=== PATIENT | female | born 1960 | race Caucasian/White ===

== ENCOUNTER 2017-03-20 07:19 | Day surgery (SDC) | payer BC ==
--- NOTE | 2017-03-19 10:43 | HISTORY AND PHYSICAL E ---
History and Physical NAME: LUIS BRAGG : 1960 AGE: 57Y ADMITTED: 03/20/2017 ROOM: CHIEF COMPLAINT: Change in bowel habits, constipation. PLAN: Colon screening. HISTORY: The patient is known to me. In 2008, I saw her. She does have abdominal pain and history of diverticulosis. She did have benign looking rectosigmoid polyps, external hemorrhoids. PAST SURGICAL HISTORY: Hysterectomy. MEDICATIONS: 1. Vitamins. 2. Aspirin. 3. Losartan. SOCIAL HISTORY: She does not smoke, does not drink. FAMILY HISTORY: Father has kidney disease. Mom's history is unremarkable. REVIEW OF SYSTEMS: GASTROINTESTINAL: Constipation, abdominal pain. PHYSICAL EXAMINATION: VITAL SIGNS: Blood pressure 130/80, pulse 80, respirations 20, temp is 98. HEAD, EYES, EARS, NOSE AND THROAT: Normal. ABDOMEN: Soft. NEUROLOGICAL: Exam negative. Colonoscopy 05/2008 shows as follows: Patient did have difficult intubation, rectosigmoid and descending colon adhesions. She did have difficult intubation. Rectosigmoid and descending colon adhesions. Rectal area showed external hemorrhoids, benign looking sigmoid polyps. Again, difficult intubation of the left sigmoid descending colon, otherwise the polyps benign hyperplastic polyps. The patient did have upper endoscopy in 2008 showing esophagitis, gastritis mild. The patient did have cholecystectomy. The patient presented at this time regarding abdominal pain. PLAN: Colon exam scheduled for 03/20/2017. DICTATING PHYSICIAN: ALVAREZ MCGRATH M.D. [id number] PHY#: [id number] ID: [id number] JOB#: [id number] ACCT: [id number] cc:ALVAREZ MCGRATH M.D. >
[2017-03-20] MEDS ORDERED: LIDOCAINE 2% JELLY 30 ML TUBE ONE (07:34)
[2017-03-20] MEDS ORDERED: ONDANSETRON HCL INJ/PF 4 MG/2 ML SDV ONE (07:35)
[2017-03-20] MEDS ORDERED: GLYCOPYRROLATE INJ 0.4 MG/2 ML VIAL ONE (07:35)
[2017-03-20] MEDS ORDERED: NALOXONE HCL INJ/PF 0.4 MG/1 ML SDV ONE (07:35)
[2017-03-20] MEDS ORDERED: EPINEPHRINE INJ 1 MG/10 ML DISP.SYRIN ONE (07:36)
[2017-03-20] MEDS ORDERED: FLUMAZENIL INJ 0.5 MG/5 ML VIAL IV ONE (07:36)
[2017-03-20] MEDS ORDERED: GLUCAGON,HUMAN RECOMB 1 MG INJ ONE (07:36)
[2017-03-20] MEDS ORDERED: FENTANYL CITRATE INJ/PF 100 MCG/2 ML AMPUL ONE (07:36)
[2017-03-20] MEDS: MIDAZOLAM 2 MG/2 ML INJ ONE ×3 (07:56→08:03)
[2017-03-20 09:23] VITALS: BP 105/70
[2017-03-20 09:56] LABS: ABSOLUTE EOSINOPHILS # (AUTO) 0.1 10^3/uL (0.0-0.6); ABSOLUTE LYMPHOCYTES (AUTO) 2.6 10^3/uL (0.5-4.7); ABSOLUTE MONOCYTES (AUTO) 0.5 10^3/uL (0.1-1.4); ABSOLUTE NEUT (AUTO) 5.4 10^3/uL (1.7-8.2); BASOPHILS % (AUTO) 0.5 % (0-2); EOSINOPHILS % (AUTO) 1.3 % (0-6); HEMOGLOBIN 13.6 g/dL (12.0-15.5); HGB HCT DIFFERENCE -0.2; LYMPHOCYTES % (AUTO) 29.9 % (13-45); MEAN CORPUSCULAR HEMOGLOBIN 30.8 pg (27.0-33.4); MEAN CORPUSCULAR HGB CONC 33.2 g/dL (32.0-36.0); MEAN CORPUSCULAR VOLUME 93 fl (80-97); MONOCYTES % (AUTO) 5.7 % (3-13); RED BLOOD COUNT 4.42 10^6/uL (3.72-5.28); RED CELL DISTRIBUTION WIDTH 13.6 % (11.5-14.0); SEGMENTED NEUTROPHILS % (AUTO) 62.6 % (42-78); WHITE BLOOD COUNT 8.6 10^3/uL (4.0-10.5)
--- NOTE | 2017-03-20 15:47 | OPERATIVE REPORT E ---
Operative Report NAME: LUIS BRAGG : 1960 AGE: 57Y DATE OF SURGERY: 03/20/2017 ROOM: PREOPERATIVE DIAGNOSES: 1. Colon screening. 2. Abdominal pain. 3. Diverticulosis. POSTOPERATIVE DIAGNOSES: A 3 mm polyp proximal transverse colon. PROCEDURE: Colonoscopy. SURGEON: ALVAREZ MCGRATH M.D. ANESTHESIA: Versed 5, fentanyl 100. TISSUE REMOVED OR ALTERED: Polyp removed bite biopsy, 3 mm, in the proximal transverse colon. DESCRIPTION: Rectal exam: Mild external hemorrhoids. Rectum normal. Sigmoid diverticulosis. Descending colon diverticulosis. Transverse colon shows 3 mm polyp proximal transverse colon, biopsy obtained. Ascending colon normal. Cecum normal. Scope withdrawn cecum, ascending, transverse, descending, sigmoid, all the way to the rectum. CONCLUSION: 1. Sigmoid descending colon diverticulosis. 2. Small 3 mm polyp proximal transverse colon. PLAN: 1. Awaiting biopsy results. 2. Consider followup colonoscopy after 3 years. Patient had difficult intubation, scars from previous surgery. She may need to be done in the OR with anesthesia standby. 3. Soft residue diet 3 days. 4. Hold aspirin and nonsteroidal 3 days. DICTATING PHYSICIAN: ALVAREZ MCGRATH M.D. [id number] PHY#: [id number] ID: [id number] JOB#: [id number] ACCT: [id number] cc:ALVAREZ MCGRATH M.D. >
--- NOTE | 2017-03-20 15:51 | DISCHARGE SUMMARY E ---
Discharge Summary NAME: LUIS BRAGG : 1960 AGE: 57Y ADMITTED: 03/20/2017 DISCHARGED: 03/20/2017 Patient is a 57-year-old female who underwent colon exam today for abdominal pain and colon screening. She did have a 3 mm polyp proximal transverse colon, biopsy obtained, severe diverticulosis sigmoid descending colon, and adhesions from previous abdominal surgery. DISCHARGE PLAN: 1. Soft low residue diet for 3 days. 2. Hold aspirin. 3. Awaiting biopsy results. 4. Consider followup colonoscopy in 3 years. DICTATING PHYSICIAN: ALVAREZ MCGRATH M.D. [id number] PHY#: [id number] ID: [id number] JOB#: [id number] ACCT: [id number] cc:ALVAREZ MCGRATH M.D. >
--- NOTE | 2017-03-20 21:18 | DISCHARGE SUMMARY E ---
Discharge Summary NAME: LUIS BRAGG : 1960 AGE: 57Y ADMITTED: 03/20/2017 DISCHARGED: 03/20/2017 The patient is a 57-year-old female, underwent colon exam today showing 3 mm polyp transverse colon, severe diverticulosis sigmoid descending colon. She is discharged on a soft, low-residue diet, hold aspirin. Awaiting biopsy results. Consideration colonoscopy 3 years. Please send copy of the op report and the discharge summary, the original, to Dr. Yared Donald. DICTATING PHYSICIAN: ALVAREZ MCGRATH M.D. [id number] PHY#: [id number] ID: [id number] JOB#: [id number] ACCT: [id number] cc:ALVAREZ MCGRATH M.D., TAJ >
== END 2017-03-20 09:40 | disposition home or self-care (01) ==
LOC: END 07:19
PROVIDERS: ATTEND Specialist
PROC: 0DBL8ZX Excision of Transverse Colon, Via Natural or Artificial Opening Endoscopic, Diagnostic (ICD-10-PCS; principal; 2017-03-20 08:00)
DX: Z12.11 Encounter for screening for malignant neoplasm of colon (principal); D12.3 Benign neoplasm of transverse colon; K57.30 Diverticulosis of large intestine without perforation or abscess without bleeding; K64.4 Residual hemorrhoidal skin tags; Z79.82 Long term (current) use of aspirin; Z79.899 Other long term (current) drug therapy; Z89.421 Acquired absence of other right toe(s)
CPT/HCPCS: 45380; 36415; 85025; 88305 ×2; J2250; J3010; J1610; J2405; J0171; J2310; J3490

== ENCOUNTER 2017-07-02 09:49 | Day surgery (SDC) | payer BC ==
[~2017-07-02 09:49] MED LIST: PROPOFOL INJ 200 MG/20 ML VIAL IV ONE
[2017-07-02] MEDS ORDERED: PROPOFOL INJ 200 MG/20 ML VIAL IV ONE ×2 (10:09→10:56)
[2017-07-02 11:22] VITALS: BP 119/68
--- NOTE | 2017-07-02 12:13 | Operative Report ---
Operative Report DATE OF SURGERY: 07/02/17 Operative Report: The risks, benefits and alternatives of the procedure including risks of bleeding, perforation requiring surgery are explained to the patient detail and informed consent was obtained. Patient was taken back to the endoscopy suite and placed in the left, lateral decubital position. Timeout was called. Propofol medications administered. A rectal examination was done which did not reveal any masses, tears or fissures. An Olympus videoscope was inserted into the patient's rectum. Following insufflation, the scope was then carefully advanced all the way to the cecum. The cecum was identified by the usual anatomical landmarks including the ileocecal valve as well as the appendiceal office. Photodocumentation is obtained. The scope was then sequentially pulled back via the various segments of the colon including the ascending colon , hepatic flexure, transverse colon, splenic flexure, descending colon and into the rectosigmoid portions of the colon. Retroflexion maneuvers performed. The risks benefits and alternatives of the procedure explained to the patient in detail and informed consent is obtained.A GIF Olympus video scope was inserted into the patient's mouth and hypopharynx, the esophagus is identified intubated and insufflated ,the scope was then advanced through the esophagus stomach and duodenum, retroflexion maneuver is done, the esophagus stomach and first and second portions of the duodenum examined PREOPERATIVE DIAGNOSIS: Personal history of polyp. Epigastric pain POSTOPERATIVE DIAGNOSIS: Remnant of previously noted polyp completely removed. Internal hemorrhoids. Diverticulosis. Gastritis status post biopsy rule out Helicobacter pylori. Duodenitis OPERATION: Colonoscopy with biopsy. EGD with biopsy SURGEON: SHANNA LAY ANESTHESIA: LMAC TISSUE REMOVED OR ALTERED: As noted above. COMPLICATIONS: None. ESTIMATED BLOOD LOSS: None. INTRAOPERATIVE FINDINGS: As described above. PROCEDURE: Patient tolerated procedure well. No immediate postprocedure complications are noted. Patient discharged in good condition. Discharge date 07/02/2017. Discharge diet: Regular. Discharge activity: Regular. 2-3 week follow-up to discuss findings. Patient is instructed to call the office or proceed to the emergency room should there be any further problems or questions. We will wait on pathology. 5 year surveillance colonoscopy.
== END 2017-07-02 11:25 | disposition home or self-care (01) ==
LOC: END 09:49
PROVIDERS: ATTEND Internal Medicine Gastroenterology
PROC: 0DB68ZX Excision of Stomach, Via Natural or Artificial Opening Endoscopic, Diagnostic (ICD-10-PCS; principal; 2017-07-02 12:30)
PROC: 0DBE8ZX Excision of Large Intestine, Via Natural or Artificial Opening Endoscopic, Diagnostic (ICD-10-PCS; 2017-07-02 12:30)
DX: K62.5 Hemorrhage of anus and rectum (principal); K64.8 Other hemorrhoids; K52.9 Noninfective gastroenteritis and colitis, unspecified; Z86.010 Personal history of colon polyps; K57.30 Diverticulosis of large intestine without perforation or abscess without bleeding; K29.70 Gastritis, unspecified, without bleeding; K29.80 Duodenitis without bleeding
CPT/HCPCS: 43239; 45380; 88305 ×2; 88313 ×2; J2704; 810